=== PATIENT | female | born 1940 | race Caucasian/White ===

== ENCOUNTER 2017-04-01 09:41 | Inpatient (IN) | payer MEDICARE, OTHER ==
[2017-04-01] MEDS ORDERED: Aluminum Hydroxide/Magnesium Hydroxide Susp 30 ML Cup PO PRN (13:23)
[2017-04-01] MEDS ORDERED: Magnesium Hydroxide 400 MG/5 ML Susp 30 ML Cup PO PRN (13:23)
[2017-04-01] MEDS: Acetaminophen/HYDROcodone 325-5 MG Tab PO PRN ×2 (17:23→21:38)
--- NOTE | 2017-04-01 18:02 | PCM.HP ---
H&P History of Present Illness - General Date of Service: 04/01/17 Admit Problem/Dx: Admission Diagnosis/Problem Admission Diagnosis/Problem Hip fracture requiring operative repair Source of Information: Patient History Limitations: Reports: No Limitations - History of Present Illness Initial Comments - Free Text/Narative: This is a 76-year-old female patient [place]. She was walking upstairs and fell and broke her left hip. She was transferred to [place] per her request and had a left total hip arthroplasty placed. She was hospitalized and then sent back to [facility] for swing bed in rehabilitation. She says she's having some pain in the hip. Otherwise she has no concerns. She denies chest pain, shortness of breath, leg swelling, fevers or chills. left hip Pain Score (Numeric/FACES): 5 - Related Data Allergies/Adverse Reactions: Allergies Allergy/AdvReac Type Severity Reaction Status Date / Time indomethacin Allergy Mild Drowsiness Verified 04/01/17 13:18 codeine Allergy Unknown Confusion Verified 04/01/17 13:18 colchicine Allergy Unknown Diarrhea Verified 04/01/17 13:18 metformin Allergy Unknown Diarrhea Verified 04/01/17 13:18 sulfamethoxazole Allergy Unknown Rash Verified 04/01/17 13:18 milcellaneous food Allergy Unknown Abdominal Uncoded 04/01/17 13:18 Pain Home Medications: Home Meds Acetaminophen [Tylenol] 650 mg PO Q4H PRN 04/01/17 [History] Acetaminophen/HYDROcodone [Creston 325-5 MG] 1 - 2 tab PO Q4H PRN 04/01/17 [ History] Alum Hydroxide/Mag Hydroxide [Mag-Al] 20 ml PO TID PRN 04/01/17 [History] Aspirin [Lo-Dose Aspirin EC] 81 mg PO DAILY 04/01/17 [History] Calcium Carbonate/Vitamin D3 [Calcium 600-Vit D3 400 Tablet] 1 tab PO BID [History] Enoxaparin [Lovenox] 40 mg SUBCUT DAILY 04/01/17 [History] Ibuprofen 600 mg PO Q6H PRN 04/01/17 [History] LORazepam [Ativan] 1 mg PO BEDTIME 04/01/17 [History] Magnesium Hydroxide [Milk of Magnesia] 30 ml PO Q8H PRN 04/01/17 [History] Milk Thistle 500 mg PO BIDMEALS 04/01/17 [History] Multivitamin [Multi-Vitamin Daily] 1 each PO DAILY 04/01/17 [History] [place]-3 Fatty Acids/Fish Oil [Fish Oil 1,000 mg Softgel] 1 cap PO DAILY [History] Oxybutynin 5 mg PO BID 04/01/17 [History] Pantoprazole Sodium 40 mg PO DAILY 04/01/17 [History] Simvastatin [Zocor] 20 mg PO BEDTIME 04/01/17 [History] Valsartan [Diovan] 320 mg PO DAILY 04/01/17 [History] traZODone 100 mg PO BEDTIME 04/01/17 [History] Past Medical History HEENT History: Reports: Cataract Cardiovascular History: Reports: Pacemaker, Other (See Below) Other Cardiovascular History: 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 (See Below) Other OB/BYN History: hysterectomy Musculoskeletal History: Reports: Arthritis, Gout Endocrine/Metabolic History: Reports: Other (See Below) Other Endocrine/Metabolic History: pre diabetes - Infectious Disease History Infectious Disease History: Reports: Chicken Pox, Human Papilloma Virus (HPV), Measles, TB - Past Surgical History HEENT Surgical History: Reports: Cataract Surgery Social & Family History - Family History Cardiac: Reports: Heart Failure Endocrine/Metabolic: Reports: Diabetes, type II - Tobacco Use Smoking Status *Q: Never Smoker Second Hand Smoke Exposure: Yes - Caffeine Use Caffeine Use: Reports: Coffee, Tea - Alcohol Use Days Per Week of Alcohol Use: 7 Number of Drinks Per Day: 2 Total Drinks Per Week: 14 Date of Last Drink: 03/28/17 Time of Last Drink: 18:00 - Recreational Drug Use Recreational Drug Use: No H&P Review of Systems - Review of Systems: Review Of Systems: See Below General: Reports: No Symptoms HEENT: Reports: No Symptoms Pulmonary: Reports: No Symptoms Cardiovascular: Reports: No Symptoms Gastrointestinal: Reports: No Symptoms Genitourinary: Reports: No Symptoms Musculoskeletal: Reports: Joint Pain Skin: Reports: No Symptoms Psychiatric: Reports: No Symptoms Neurological: Reports: No Symptoms Hematologic/Lymphatic: Reports: No Symptoms Immunologic: Reports: No Symptoms Exam - Exam Exam: See Below - Vital Signs Vital Signs: Last Vital Signs Temp 98.7 F 04/01/17 12:04 Pulse 74 04/01/17 12:04 Resp 20 04/01/17 12:04 BP 156/68 H 04/01/17 12:04 Pulse Ox 95 04/01/17 12:04 Weight: 201 lb 12.8 oz - Exam General: Alert, Oriented, Cooperative HEENT: PERRLA, Hearing Intact, Mucosa Moist & Cutter, Posterior Pharynx Clear, TMs Clear Neck: Supple, Trachea Midline Lungs: Clear to Auscultation, Normal Respiratory Effort. No: Crackles, Rales, Rhonchi Cardiovascular: Regular Rate, Regular Rhythm. No: Systolic Murmur, Diastolic Murmur GI/Abdominal Exam: Normal Bowel Sounds, Soft, Non-Tender, No Organomegaly, No Distention, No Abnormal Bruit Back Exam: Normal Inspection. No: Vertebral Tenderness Extremities: Normal Inspection, Non-Tender, No Pedal Edema Skin: Warm, Dry, Intact Neurological: Normal Speech, Normal Tone Neuro Extensive - Mental Status: Alert, Oriented x3, Normal Mood/Affect, Normal Cognition Neuro Extensive - Motor, Sensory, Reflexes: No: Normal Gait Psychiatric: Alert, Normal Affect, Normal Mood *Q Meaningful Use (ADM) - VTE *Q VTE Criteria *Q: - Stroke *Q Stroke Criteria *Q: - AMI *Q AMI Criteria *Q: - Problem List (1) Hip fracture requiring operative repair SNOMED Code(s): 308164185 ICD Code: S72.009A - FRACTURE OF UNSP PART OF NECK OF UNSP FEMUR, INIT Status: Acute Current Visit: Yes Problem List Initiated/Reviewed/Updated: Yes Orders Last 24hrs: Active Orders 24 hr Category Date Time Status Patient Status [ADT] Routine ADT 04/01/17 13:19 Active Height and Weight [RC] WEEKLY Care 04/01/17 13:19 Active Oxygen Therapy [RC] PRN Care 04/01/17 13:19 Active Up With Assistance [RC] ASDIRECTED Care 04/01/17 13:19 Active VTE/DVT Education [RC] Per Unit Routine Care 04/01/17 13:19 Active Vital Signs [RC] 08 Care 04/01/17 13:19 Active OT Evaluation and Treatment [CONS] Routine Cons 04/01/17 13:19 Active PT Evaluation and Treatment [CONS] Routine Cons 04/01/17 13:19 Active Regular Diet [DIET] Diet 04/01/17 Lunch Active Acetaminophen [Tylenol] Med 04/01/17 13:23 Active 650 mg PO Q4H PRN Acetaminophen/HYDROcodone [Creston 325-5 MG] Med 04/01/17 13:23 Active 1 tab PO Q4H PRN Alum Hydroxide/Mag Hydroxide [Mag-Al Susp] Med 04/01/17 13:23 Active 20 ml PO TID PRN Aspirin [Halfprin] Med 04/02/17 09:00 Active 81 mg PO DAILY Calcium Carbonate/Vitamin D3 [Calcium Carbonate/Vitamin Med 04/01/17 21:00 Active D 1250 MG-200 Unit] 1 tab PO BID Enoxaparin [Lovenox] Med 04/02/17 09:00 Active 40 mg SUBCUT DAILY Fish Oil/[place]-3 Fatty Acids [Fish Oil] Med 04/02/17 09:00 Active 1 gm PO DAILY Ibuprofen [Motrin] Med 04/01/17 13:23 Active 600 mg PO Q6H PRN LORazepam [Ativan] Med 04/01/17 21:00 Active 1 mg PO BEDTIME Magnesium Hydroxide [Milk of Magnesia] Med 04/01/17 13:23 Active 30 ml PO Q8H PRN Multivitamins [Tab-A-Ato] Med 04/02/17 09:00 Active 1 tab PO DAILY Oxybutynin Med 04/01/17 21:00 Active 5 mg PO BID Pantoprazole [ProTONIX] Med 04/02/17 06:00 Active 40 mg PO 0600 Simvastatin [Zocor] Med 04/01/17 21:00 Active 20 mg PO BEDTIME Valsartan [Diovan] Med 04/02/17 09:00 Active 320 mg PO DAILY traZODone Med 04/01/17 21:00 Active 100 mg PO BEDTIME Resuscitation Status Routine Resus Stat 04/01/17 13:19 Ordered Medication Orders Acetaminophen (Tylenol) 650 mg PO Q4H PRN PRN Reason: Pain Hydrocodone Bitart/Acetaminophen (Creston 325-5 Mg) 1 tab PO Q4H PRN PRN Reason: Pain Last Admin: 04/01/17 17:23 Dose: 1 tab Al Hydroxide/Mg Hydroxide (Mag-Al Susp) 20 ml PO TID PRN PRN Reason: Other Aspirin (Halfprin) 81 mg PO DAILY LUPILLO Calcium Carbonate (Calcium Carbonate/Vitamin D 1250 Mg-200 Unit) 1 tab PO BID LUPILLO Enoxaparin Sodium (Lovenox) 40 mg SUBCUT DAILY LUPILLO Stop: 04/27/17 09:01 Fish Oil (Fish Oil) 1 gm PO DAILY LUPILLO Ibuprofen (Motrin) 600 mg PO Q6H PRN PRN Reason: Pain Lorazepam (Ativan) 1 mg PO BEDTIME LUPILLO Magnesium Hydroxide (Milk Of Magnesia) 30 ml PO Q8H PRN PRN Reason: INDIGESTION Multivitamins/Minerals/Vitamin C (Tab-A-Tao) 1 tab PO DAILY LUPILLO Oxybutynin Chloride (Oxybutynin) 5 mg PO BID LUPILLO Pantoprazole Sodium (Protonix) 40 mg PO 0600 LUPILLO Stop: 04/27/17 06:01 Simvastatin (Zocor) 20 mg PO BEDTIME LUPILLO Trazodone HCl (Trazodone) 100 mg PO BEDTIME LUPILLO Valsartan (Diovan) 320 mg PO DAILY LUPILLO Assessment/Plan Comment:: Admit to swing bed. Continue the same medications that she came over with from [facility]. PT/OT. Regular diet.
[2017-04-01] MEDS: Acetaminophen 325 MG Tab PO PRN (20:15)
[2017-04-01] MEDS: LORazepam 1 MG Tab PO SCH (21:37)
[2017-04-01] MEDS: Calcium Carbonate/Vitamin D3 1250 MG-200 Unit Tab PO SCH (21:37)
[2017-04-01] MEDS: traZODone 100 MG Tab PO SCH (21:38)
[2017-04-01] MEDS: Simvastatin 20 MG Tab PO SCH (21:38)
[2017-04-01] MEDS: Oxybutynin 5 MG Tab PO SCH (21:38)
[2017-04-02] MEDS: Pantoprazole 40 MG Tab.CR PO SCH (05:11)
[2017-04-02] MEDS: Acetaminophen/HYDROcodone 325-5 MG Tab PO PRN ×5 (05:14→22:28)
[2017-04-02] MEDS: Ibuprofen 600 MG Tab PO PRN (08:01)
[2017-04-02] MEDS: Valsartan 160 MG Tab PO SCH (08:03)
[2017-04-02] MEDS: Calcium Carbonate/Vitamin D3 1250 MG-200 Unit Tab PO SCH ×2 (08:03→21:38)
[2017-04-02] MEDS: Oxybutynin 5 MG Tab PO SCH ×2 (08:04→21:39)
[2017-04-02] MEDS: Enoxaparin 40 MG/0.4 ML Syringe SUBCUT SCH (08:04)
[2017-04-02] MEDS: Aspirin 81 MG Tab.EC PO SCH (08:04)
[2017-04-02] MEDS: Multivitamin Tab PO SCH (08:04)
[2017-04-02] MEDS: Fish Oil/Omega-3 Fatty Acids 1 Gm Cap PO SCH (08:04)
[2017-04-02] MEDS: Acetaminophen 325 MG Tab PO PRN (11:33)
[2017-04-02] MEDS: LORazepam 1 MG Tab PO SCH (21:38)
[2017-04-02] MEDS: traZODone 100 MG Tab PO SCH (21:39)
[2017-04-02] MEDS: Simvastatin 20 MG Tab PO SCH (21:39)
[2017-04-03] MEDS: Pantoprazole 40 MG Tab.CR PO SCH (05:34)
[2017-04-03] MEDS: Acetaminophen/HYDROcodone 325-5 MG Tab PO PRN ×4 (05:34→19:57)
[2017-04-03] MEDS: Ibuprofen 600 MG Tab PO PRN ×2 (08:15→21:37)
[2017-04-03] MEDS: Enoxaparin 40 MG/0.4 ML Syringe SUBCUT SCH (08:16)
[2017-04-03] MEDS: Multivitamin Tab PO SCH (08:17)
[2017-04-03] MEDS: Aspirin 81 MG Tab.EC PO SCH (08:17)
[2017-04-03] MEDS: Valsartan 160 MG Tab PO SCH (08:17)
[2017-04-03] MEDS: Fish Oil/Omega-3 Fatty Acids 1 Gm Cap PO SCH (08:18)
[2017-04-03] MEDS: Calcium Carbonate/Vitamin D3 1250 MG-200 Unit Tab PO SCH ×2 (08:18→21:37)
[2017-04-03] MEDS: Oxybutynin 5 MG Tab PO SCH ×2 (08:18→21:37)
[2017-04-03] MEDS: LORazepam 1 MG Tab PO SCH (21:36)
[2017-04-03] MEDS: Simvastatin 20 MG Tab PO SCH (21:37)
[2017-04-03] MEDS: traZODone 100 MG Tab PO SCH (21:37)
[2017-04-04] MEDS: Pantoprazole 40 MG Tab.CR PO SCH (06:32)
[2017-04-04] MEDS: Ibuprofen 600 MG Tab PO PRN ×3 (06:33→18:31)
[2017-04-04] MEDS: Calcium Carbonate/Vitamin D3 1250 MG-200 Unit Tab PO SCH ×2 (09:22→22:00)
[2017-04-04] MEDS: Multivitamin Tab PO SCH (09:24)
[2017-04-04] MEDS: Aspirin 81 MG Tab.EC PO SCH (09:24)
[2017-04-04] MEDS: Oxybutynin 5 MG Tab PO SCH ×2 (09:24→22:00)
[2017-04-04] MEDS: Fish Oil/Omega-3 Fatty Acids 1 Gm Cap PO SCH (09:24)
[2017-04-04] MEDS: Enoxaparin 40 MG/0.4 ML Syringe SUBCUT SCH (09:25)
[2017-04-04] MEDS: Valsartan 160 MG Tab PO SCH (09:25)
[2017-04-04] MEDS: Acetaminophen/HYDROcodone 325-5 MG Tab PO PRN (09:36)
--- NOTE | 2017-04-04 11:36 | PN ---
DATE SEEN: 04/04/2017 SUBJECTIVE: Lupe Fowler is a 76-year-old female seen today for review. Admitted to swing bed. Left hip fracture, fell at [place]. Tory are still in. Hemoglobin to be checked. The pain is controlled. She is on Lovenox. Laboratory studies none. No recent hemoglobin. PHYSICAL EXAMINATION: VITAL SIGNS: Stable, 37.4, 68, 147/110, 20 is the respirations, and 98%. NECK: Benign. Thyroid is small. CHEST: Clear. HEART: Regular. ABDOMEN: Benign. MUSCULOSKELETAL: Surgical wound left lateral hip intact, tory in place. ASSESSMENT: Left hip fracture surgery on 03/27/2017. PLAN: Staple removal, to be observed, complementary care and well being. PT actively involved. Watch blood pressures closely. /[id number] SHOBHA/LEXY
[2017-04-04] MEDS: LORazepam 1 MG Tab PO SCH (22:00)
[2017-04-04] MEDS: traZODone 100 MG Tab PO SCH (22:00)
[2017-04-04] MEDS: Simvastatin 20 MG Tab PO SCH (22:01)
[2017-04-05] MEDS: Pantoprazole 40 MG Tab.CR PO SCH (06:14)
[2017-04-05] MEDS: Acetaminophen/HYDROcodone 325-5 MG Tab PO PRN ×2 (06:14→14:23)
[2017-04-05] MEDS: Ibuprofen 600 MG Tab PO PRN ×2 (09:43→18:49)
[2017-04-05] MEDS: Valsartan 160 MG Tab PO SCH (09:46)
[2017-04-05] MEDS: Calcium Carbonate/Vitamin D3 1250 MG-200 Unit Tab PO SCH ×2 (09:46→21:36)
[2017-04-05] MEDS: Fish Oil/Omega-3 Fatty Acids 1 Gm Cap PO SCH (09:47)
[2017-04-05] MEDS: Aspirin 81 MG Tab.EC PO SCH (09:47)
[2017-04-05] MEDS: Oxybutynin 5 MG Tab PO SCH ×2 (09:48→21:36)
[2017-04-05] MEDS: Enoxaparin 40 MG/0.4 ML Syringe SUBCUT SCH (09:48)
[2017-04-05] MEDS: Multivitamin Tab PO SCH (09:49)
[2017-04-05] MEDS: Simvastatin 20 MG Tab PO SCH (21:37)
[2017-04-05] MEDS: traZODone 100 MG Tab PO SCH (21:37)
[2017-04-05] MEDS: LORazepam 1 MG Tab PO SCH (22:35)
[2017-04-06] MEDS: Acetaminophen/HYDROcodone 325-5 MG Tab PO PRN ×3 (06:00→22:34)
[2017-04-06] MEDS: Pantoprazole 40 MG Tab.CR PO SCH (06:00)
[2017-04-06] MEDS: Ibuprofen 600 MG Tab PO PRN (09:00)
[2017-04-06] MEDS: Enoxaparin 40 MG/0.4 ML Syringe SUBCUT SCH (09:01)
[2017-04-06] MEDS: Aspirin 81 MG Tab.EC PO SCH (09:01)
[2017-04-06] MEDS: Valsartan 160 MG Tab PO SCH (09:02)
[2017-04-06] MEDS: Fish Oil/Omega-3 Fatty Acids 1 Gm Cap PO SCH (09:02)
[2017-04-06] MEDS: Multivitamin Tab PO SCH (09:03)
[2017-04-06] MEDS: Oxybutynin 5 MG Tab PO SCH ×2 (09:03→20:36)
[2017-04-06] MEDS: Calcium Carbonate/Vitamin D3 1250 MG-200 Unit Tab PO SCH ×2 (09:03→20:36)
--- NOTE | 2017-04-06 12:16 | PN ---
DATE SEEN: 04/06/2017 SUBJECTIVE: Lupe Fowler is a 76-year-old female seen today for review. Sustained a left hip fracture. Surgical date, March 27, 2017. Doing well. Rehab is going comfortably. Hemoglobin 12, 16, and 11.3. [place] still in place. OBJECTIVE: CHEST: Clear. HEART: Regular. ABDOMEN: Benign. Surgical site intact including mary. ASSESSMENT: Left hip fracture. PLAN: Rehab in place, complementary care and well being. Pain control, follow up as indicated. /[id number] [id number] SHOBHA/LEXY
[2017-04-06] MEDS: traZODone 100 MG Tab PO SCH (20:36)
[2017-04-06] MEDS: Simvastatin 20 MG Tab PO SCH (20:37)
[2017-04-06] MEDS: LORazepam 1 MG Tab PO SCH (22:33)
[2017-04-07] MEDS: Pantoprazole 40 MG Tab.CR PO SCH (05:00)
[2017-04-07] MEDS: Calcium Carbonate/Vitamin D3 1250 MG-200 Unit Tab PO SCH ×2 (08:38→20:53)
[2017-04-07] MEDS: Aspirin 81 MG Tab.EC PO SCH (08:39)
[2017-04-07] MEDS: Valsartan 160 MG Tab PO SCH (08:39)
[2017-04-07] MEDS: Enoxaparin 40 MG/0.4 ML Syringe SUBCUT SCH (08:39)
[2017-04-07] MEDS: Fish Oil/Omega-3 Fatty Acids 1 Gm Cap PO SCH (08:39)
[2017-04-07] MEDS: Acetaminophen/HYDROcodone 325-5 MG Tab PO PRN ×3 (08:40→19:47)
[2017-04-07] MEDS: Multivitamin Tab PO SCH (08:40)
[2017-04-07] MEDS: Oxybutynin 5 MG Tab PO SCH ×2 (08:40→20:53)
--- NOTE | 2017-04-07 13:33 | PN ---
DATE SEEN: 04/05/2017 SUBJECTIVE: Lupe Fowler is a delightful 76-year-old, female, in swing bed. Sustained a left hip fracture. [facility] provider of record. Tory to be in place for 2 weeks, likely 04/10/2017. Visit in [facility] may be problematic due to travel issues. Medications reviewed and appropriate. No recent hemoglobin. OBJECTIVE: VITAL SIGNS: 36.9, 60, 146/64, 16, 94%. CHEST: Clear. HEART: Regular. ABDOMEN: Benign. EXTREMITIES: Left hip wound stable. ASSESSMENT: Postop, left hip fracture. Surgical repair, rehab in place. PLAN: Check hemoglobin, close observation, intervention and care as appropriate. /[id number] [id number] SHOBHA/LEXY
--- NOTE | 2017-04-07 14:08 | PN ---
DATE SEEN: 04/07/2017 SUBJECTIVE: Lupe Fowler is a 76-year-old female, admitted to swing bed. She had a previous left hip fracture. Surgical date 03/27/2017. Followup planned for 04/10/2017. Doing well. Comfortable, pain is controlled. PT active and appropriate. Hemoglobin done 04/05/2017. OBJECTIVE: CHEST: Clear. HEART: Regular. ABDOMEN: Benign. EXTREMITIES: Surgical site is intact, left hip. ASSESSMENT: Left hip fracture with surgical repair. PLAN: Medications on board. Analgesics as appropriate. She stools comfortably. PT in place. /[id number] [id number] SHOBHA/LEXY
[2017-04-07] MEDS: Simvastatin 20 MG Tab PO SCH (20:53)
[2017-04-07] MEDS ORDERED: traZODone 50 MG Tab ONE (21:00)
[2017-04-07] MEDS: traZODone 100 MG Tab PO SCH (21:01)
[2017-04-07] MEDS: LORazepam 1 MG Tab PO SCH (22:30)
[2017-04-08] MEDS: Aspirin 81 MG Tab.EC PO SCH (09:00)
[2017-04-08] MEDS: Oxybutynin 5 MG Tab PO SCH ×2 (09:00→20:42)
[2017-04-08] MEDS: Enoxaparin 40 MG/0.4 ML Syringe SUBCUT SCH (09:00)
[2017-04-08] MEDS: Multivitamin Tab PO SCH (09:00)
[2017-04-08] MEDS: Pantoprazole 40 MG Tab.CR PO SCH (09:00)
[2017-04-08] MEDS: Calcium Carbonate/Vitamin D3 1250 MG-200 Unit Tab PO SCH ×2 (09:00→20:42)
[2017-04-08] MEDS: Fish Oil/Omega-3 Fatty Acids 1 Gm Cap PO SCH (09:00)
--- NOTE | 2017-04-08 12:26 | PN ---
DATE SEEN: 04/08/2017 SUBJECTIVE: Lupe Fowler is a 76-year-old, female, in swing bed. Undergoing rehab for left hip fracture. [place] provider of record. [place] removed on the , hemoglobin was stable, pain medications appear to be comfortable in terms of intervention. OBJECTIVE: CHEST: Clear. HEART: Regular. ABDOMEN: Benign. EXTREMITIES: No posterior calf pain. [place] in good position in left hip. IMPRESSION: Left hip fracture, surgical repair, rehab. PLAN: Medications, care, and treatment appropriate. Plans as above. /[id number] SHOBHA/LEXY
[2017-04-08] MEDS: Valsartan 160 MG Tab PO SCH (15:46)
[2017-04-08] MEDS: Acetaminophen/HYDROcodone 325-5 MG Tab PO PRN ×2 (17:23→22:23)
[2017-04-08] MEDS: Simvastatin 20 MG Tab PO SCH (20:42)
[2017-04-08] MEDS: traZODone 100 MG Tab PO SCH (20:42)
[2017-04-08] MEDS: LORazepam 1 MG Tab PO SCH (22:17)
[2017-04-09] MEDS: Acetaminophen/HYDROcodone 325-5 MG Tab PO PRN ×4 (04:59→19:58)
[2017-04-09] MEDS: Pantoprazole 40 MG Tab.CR PO SCH (05:00)
[2017-04-09] MEDS: Ibuprofen 600 MG Tab PO PRN (08:16)
[2017-04-09] MEDS: Fish Oil/Omega-3 Fatty Acids 1 Gm Cap PO SCH (08:18)
[2017-04-09] MEDS: Aspirin 81 MG Tab.EC PO SCH (08:18)
[2017-04-09] MEDS: Oxybutynin 5 MG Tab PO SCH ×2 (08:18→20:04)
[2017-04-09] MEDS: Valsartan 160 MG Tab PO SCH (08:18)
[2017-04-09] MEDS: Multivitamin Tab PO SCH (08:18)
[2017-04-09] MEDS: Calcium Carbonate/Vitamin D3 1250 MG-200 Unit Tab PO SCH ×2 (08:18→20:03)
[2017-04-09] MEDS: Enoxaparin 40 MG/0.4 ML Syringe SUBCUT SCH (08:22)
--- NOTE | 2017-04-09 13:39 | PN ---
DATE SEEN: 04/09/2017 SUBJECTIVE: Lupe Fowler is a 76-year-old female, now soon 2 weeks status post left hip fracture. Tory to be removed tomorrow. Radiographs will be performed and forwarded to her [facility] physician. OBJECTIVE: CHEST: Clear. HEART: Regular. ABDOMEN: Benign. Surgical site intact. ASSESSMENT: Left hip fracture, staple removal, x-rays in place. PLAN: Continue therapy. Expectations to do well. /[id number] [id number] /LEXY
--- NOTE | 2017-04-09 15:21 | CR ---
INDICATION: Follow-up hip fracture. PELVIS WITH LEFT HIP: Frontal view of the pelvis, frontal view of the left hip , and two lateral views of the left hip revealed evidence of hip pinning on the left with fairly good position and alignment suggested and no definite complicating process identified. Somewhat demineralized appearance is suggested compatible with osteoporosis. Mild degenerative changes are noted at the hip joints with suggestion of some minimal narrowing cranial laterally of the left hip joint. IMPRESSION: Satisfactory appearance postop hip pinning, left hip. [facility]
[2017-04-09] MEDS: traZODone 100 MG Tab PO SCH (20:04)
[2017-04-09] MEDS: Simvastatin 20 MG Tab PO SCH (20:04)
[2017-04-09] MEDS: LORazepam 1 MG Tab PO SCH (22:43)
[2017-04-10] MEDS: Pantoprazole 40 MG Tab.CR PO SCH (05:22)
[2017-04-10] MEDS: Valsartan 160 MG Tab PO SCH (08:57)
[2017-04-10] MEDS: Calcium Carbonate/Vitamin D3 1250 MG-200 Unit Tab PO SCH ×2 (08:57→21:05)
[2017-04-10] MEDS: Enoxaparin 40 MG/0.4 ML Syringe SUBCUT SCH (08:58)
[2017-04-10] MEDS: Aspirin 81 MG Tab.EC PO SCH (08:58)
[2017-04-10] MEDS: Fish Oil/Omega-3 Fatty Acids 1 Gm Cap PO SCH (08:58)
[2017-04-10] MEDS: Multivitamin Tab PO SCH (08:59)
[2017-04-10] MEDS: Oxybutynin 5 MG Tab PO SCH ×2 (08:59→21:05)
[2017-04-10] MEDS: Acetaminophen/HYDROcodone 325-5 MG Tab PO PRN ×3 (09:04→20:14)
--- NOTE | 2017-04-10 10:59 | PN ---
DATE SEEN: 04/10/2017 SUBJECTIVE: Lupe Fowler is a 76-year-old female, in swing bed. Underwent left hip arthroplasty in [place]. Tory to be removed today. Radiographs performed on 04/09/2017, revealed satisfactory. Supposed to be left hip without complicating issue. [place] removed per exam. Wound was intact, left hip. OBJECTIVE: CHEST: Clear. HEART: Regular. ABDOMEN: Benign. ASSESSMENT: Postoperative care, left hip fracture. Surgical intervention. PLAN: Hemoglobin stable, tory to be removed, radiographs will be forwarded to her orthopedist for record. /[id number] [id number] SHOBHA/LEXY
[2017-04-10] MEDS: Simvastatin 20 MG Tab PO SCH (21:05)
[2017-04-10] MEDS: traZODone 100 MG Tab PO SCH (21:05)
[2017-04-10] MEDS: LORazepam 1 MG Tab PO SCH (21:05)
[2017-04-11] MEDS: Pantoprazole 40 MG Tab.CR PO SCH (05:42)
[2017-04-11] MEDS: Calcium Carbonate/Vitamin D3 1250 MG-200 Unit Tab PO SCH ×2 (08:32→20:54)
[2017-04-11] MEDS: Fish Oil/Omega-3 Fatty Acids 1 Gm Cap PO SCH (08:32)
[2017-04-11] MEDS: Valsartan 160 MG Tab PO SCH (08:32)
[2017-04-11] MEDS: Acetaminophen 325 MG Tab PO PRN ×2 (08:33→20:59)
[2017-04-11] MEDS: Multivitamin Tab PO SCH (08:33)
[2017-04-11] MEDS: Enoxaparin 40 MG/0.4 ML Syringe SUBCUT SCH (08:33)
[2017-04-11] MEDS: Aspirin 81 MG Tab.EC PO SCH (08:33)
[2017-04-11] MEDS: Oxybutynin 5 MG Tab PO SCH ×2 (08:33→20:54)
[2017-04-11] MEDS: Ibuprofen 600 MG Tab PO PRN (13:06)
[2017-04-11] MEDS: traZODone 100 MG Tab PO SCH (20:54)
[2017-04-11] MEDS: Simvastatin 20 MG Tab PO SCH (20:55)
[2017-04-11] MEDS: LORazepam 1 MG Tab PO SCH ×2 (22:08→22:37)
[2017-04-12] MEDS: Pantoprazole 40 MG Tab.CR PO SCH (05:57)
[2017-04-12] MEDS: Calcium Carbonate/Vitamin D3 1250 MG-200 Unit Tab PO SCH ×2 (08:34→20:44)
[2017-04-12] MEDS: Valsartan 160 MG Tab PO SCH (08:35)
[2017-04-12] MEDS: Aspirin 81 MG Tab.EC PO SCH (08:36)
[2017-04-12] MEDS: Enoxaparin 40 MG/0.4 ML Syringe SUBCUT SCH (08:36)
[2017-04-12] MEDS: Fish Oil/Omega-3 Fatty Acids 1 Gm Cap PO SCH (08:36)
[2017-04-12] MEDS: Multivitamin Tab PO SCH (08:37)
[2017-04-12] MEDS: Oxybutynin 5 MG Tab PO SCH ×2 (08:37→20:44)
[2017-04-12] MEDS: Ibuprofen 600 MG Tab PO PRN ×3 (08:37→22:04)
[2017-04-12] MEDS: Acetaminophen 325 MG Tab PO PRN (11:08)
[2017-04-12] MEDS: Simvastatin 20 MG Tab PO SCH (20:44)
[2017-04-12] MEDS: traZODone 100 MG Tab PO SCH (20:44)
[2017-04-12] MEDS: LORazepam 1 MG Tab PO SCH (22:00)
[2017-04-13] MEDS: Pantoprazole 40 MG Tab.CR PO SCH (06:09)
[2017-04-13] MEDS: Valsartan 160 MG Tab PO SCH (08:28)
[2017-04-13] MEDS: Calcium Carbonate/Vitamin D3 1250 MG-200 Unit Tab PO SCH ×2 (08:28→20:37)
[2017-04-13] MEDS: Aspirin 81 MG Tab.EC PO SCH (08:29)
[2017-04-13] MEDS: Enoxaparin 40 MG/0.4 ML Syringe SUBCUT SCH (08:29)
[2017-04-13] MEDS: Fish Oil/Omega-3 Fatty Acids 1 Gm Cap PO SCH (08:29)
[2017-04-13] MEDS: Ibuprofen 600 MG Tab PO PRN ×2 (08:30→22:29)
[2017-04-13] MEDS: Oxybutynin 5 MG Tab PO SCH ×2 (08:30→20:37)
[2017-04-13] MEDS: Multivitamin Tab PO SCH (08:30)
[2017-04-13] MEDS: Acetaminophen 325 MG Tab PO PRN (13:11)
[2017-04-13] MEDS: traZODone 100 MG Tab PO SCH (20:37)
[2017-04-13] MEDS: Simvastatin 20 MG Tab PO SCH (20:37)
[2017-04-13] MEDS: LORazepam 1 MG Tab PO SCH (22:26)
[2017-04-14] MEDS: Pantoprazole 40 MG Tab.CR PO SCH (05:47)
[2017-04-14] MEDS: Valsartan 160 MG Tab PO SCH (08:51)
[2017-04-14] MEDS: Calcium Carbonate/Vitamin D3 1250 MG-200 Unit Tab PO SCH ×2 (08:51→20:55)
[2017-04-14] MEDS: Fish Oil/Omega-3 Fatty Acids 1 Gm Cap PO SCH (08:55)
[2017-04-14] MEDS: Aspirin 81 MG Tab.EC PO SCH (08:55)
[2017-04-14] MEDS: Enoxaparin 40 MG/0.4 ML Syringe SUBCUT SCH (08:56)
[2017-04-14] MEDS: Multivitamin Tab PO SCH (08:56)
[2017-04-14] MEDS: Oxybutynin 5 MG Tab PO SCH ×2 (08:56→20:55)
[2017-04-14] MEDS: Ibuprofen 600 MG Tab PO PRN ×2 (08:57→22:02)
[2017-04-14] MEDS: Acetaminophen 325 MG Tab PO PRN (13:30)
[2017-04-14] MEDS: traZODone 100 MG Tab PO SCH (20:55)
[2017-04-14] MEDS: Simvastatin 20 MG Tab PO SCH (20:55)
[2017-04-14] MEDS: LORazepam 1 MG Tab PO SCH (22:02)
[2017-04-15] MEDS: Pantoprazole 40 MG Tab.CR PO SCH (05:39)
[2017-04-15] MEDS: Calcium Carbonate/Vitamin D3 1250 MG-200 Unit Tab PO SCH (09:53)
[2017-04-15] MEDS: Oxybutynin 5 MG Tab PO SCH (09:53)
[2017-04-15] MEDS: Valsartan 160 MG Tab PO SCH (09:53)
[2017-04-15] MEDS: Enoxaparin 40 MG/0.4 ML Syringe SUBCUT SCH (09:54)
[2017-04-15] MEDS: Aspirin 81 MG Tab.EC PO SCH (09:54)
[2017-04-15] MEDS: Fish Oil/Omega-3 Fatty Acids 1 Gm Cap PO SCH (09:54)
[2017-04-15] MEDS: Multivitamin Tab PO SCH (09:55)
--- NOTE | 2017-04-15 22:37 | DISCH ---
DISCHARGE DATE: 04/15/2017 REASON FOR ADMISSION: Left hip fracture, status post repair. DISCHARGE DIAGNOSES: 1. Left hip fracture, status post repair. 2. Anemia, blood loss, mild. CONSULTATIONS: PT and OT. BRIEF HOSPITAL COURSE: A 76-year-old female, who was brought from [place] after repair of left hip fracture. She was admitted for rehab, pain control, and physical therapy. She was ready to go back home on the . DISCHARGE MEDICATIONS: She will be discharged home on current medications: 1. Acetaminophen. 2. Aluminium hydroxide. 3. Aspirin 81 mg a day. 4. Calcium carbonate 1 tablet b.i.d. 5. Lovenox subcutaneously up to the 27 of April next year. 6. Ibuprofen. 7. Lorazepam 1 mg at bedtime. 8. Magnesium hydroxide every 8 hours p.r.n. 9. Oxybutynin 5 mg b.i.d. 10.Protonix 40 mg daily. 11.Zocor 20 mg at bedtime. 12.Trazodone 100 mg at bedtime. 13.Diovan 320 mg daily. FOLLOWUP: Follow up with orthopedic physician of record within the coming week as previously scheduled. I spent less than 35 minutes in the discharge of the patient. /[id number] LUI/LEXY
== END 2017-04-15 11:05 | disposition home health service (06) | DRG 561 ==
LOC: FB.MS 11:39
PROVIDERS: ADMIT Family Medicine; ATTEND Family Medicine
DX: Z47.1 Aftercare following joint replacement surgery (principal); Z98.890 Other specified postprocedural states; Z96.642 Presence of left artificial hip joint; S72.002D Fracture of unspecified part of neck of left femur, subsequent encounter for closed fracture with routine healing; W19.XXXD Unspecified fall, subsequent encounter; D50.0 Iron deficiency anemia secondary to blood loss (chronic); M19.90 Unspecified osteoarthritis, unspecified site; Z95.0 Presence of cardiac pacemaker; Z79.82 Long term (current) use of aspirin; Z88.5 Allergy status to narcotic agent; Z91.018 Allergy to other foods; Z88.8 Allergy status to other drugs, medicaments and biological substances; Z86.19 Personal history of other infectious and parasitic diseases
CPT/HCPCS: 36415; 73502-LT; 85014; 85018; 97110-GO; 97110-GP; 97116-GP; 97161-GP; 97166-GO; 97530-GO-KX; 97530-GP; 97535-GO; 97542-GO; A9270-GY; J1650